=== PATIENT | male | born 1995 | race Caucasian/White ===

== ENCOUNTER 2018-12-05 13:48 | Emergency (ER) | payer OTHER ==
[2018-12-05] MEDS ORDERED: NS 500 ML IV ONE (14:05)
--- NOTE | 2018-12-05 14:14 | EDPHY ---
H & P Time Seen by Provider: 12/05/18 13:49 HPI/ROS: HPI Chest pain. 23-year-old male by private vehicle. This patient reports that since 12 noon today, 2 hr ago, he has had chest pain which she describes as left-sided, underneath his left pectoral area, described as sharp, described as intermittent in intensity, described as worse with exertion. He has never had this pain before. He denies any past medical history. He denies any IV drugs or street drugs. No history of methamphetamine or cocaine use. He does not smoke. He denies any recent viral illness. ROS: Constitutional: No fever, no chills. No weakness. Eyes: No discharge. No changes in vision. ENT: No sore throat. No nasal congestion or rhinorrhea. Respiratory: No cough. No shortness of breath. Cardiac: As above, no palpitations. Gastrointestinal: No abdominal pain, no vomiting, no diarrhea. Genitourinary: No hematuria. No dysuria or increased frequency with urination. Musculoskeletal: No back pain. No neck pain. No myalgias or arthralgias. Skin: No rashes. Neurological: No headache. No focal weakness or altered sensation. Past medical history: No significant past medical history. He takes no prescription medications. Social history: He is a [employer]. No alcohol. No tobacco. As above. Physical Exam: General Appearance: Alert, no distress, mildly anxious. This patient is responding to questions appropriately and in full sentences. This patient appears well-hydrated and well-nourished. Eyes: Pupils equal and round no pallor or injection. No lid edema, erythema or injection. Respiratory: There are no retractions, lungs are clear to auscultation with good air movement bilaterally. Cardiovascular: Regular rate and rhythm. No murmur appreciated. Gastrointestinal: Abdomen is soft and nontender, no masses, bowel sounds normal. No focal tenderness at McBurney's point. No Garcia sign. Neurological: Motor sensory function is grossly intact. Cranial nerves are normal. Gait is normal. Skin: Warm and dry, no rashes. Musculoskeletal: Neck is supple and nontender. Extremities are symmetrical. All joints range without pain or impingement. Psychiatric: No agitation. No depression. Database: EKG: EKG time is 2:33 p.m.; EKG shows a narrow complex normal sinus rhythm with a ventricular rate of 82. The IN, QRS, QT intervals are within normal limits. Early repolarization pattern noted. There are no ST-T wave changes indicative of ischemic or injury pattern. No evidence of right heart strain. Interpreted by me. Imaging: Chest x-ray AP portable; the cardiac mediastinal silhouette is unremarkable. No evidence of pneumothorax or infiltrate. No acute cardiopulmonary disease process. Interpreted by me. Procedures: Emergency department course: Triage vital signs reviewed and are unremarkable. At this time the patient does not having significant pain or discomfort. Patient placed on a assembly detailer. IV established. EKG obtained and reviewed by myself. Heart score is 0-1. 3:20 p.m., the patient was re-evaluated, resting comfortably at this time. Results of his diagnostic workup discussed with him. These results are reassuring. I discussed repeating a 3 hr troponin. He is in agreement. He states that he has some mild discomfort at this time. He will be given 800 mg of ibuprofen. 6:30 p.m., the patient was re-evaluated, resting comfortably at this time. His father is in the room with him. I discussed the results of his emergency department workup in 2nd troponin with him and his father. He is denying any pain at this time. No shortness of breath. He is requesting discharge with his father. I feel he is safe for discharge. Follow-up and return to emergency department precautions were reviewed thoroughly with both him and his father. All their questions were answered. The patient was discharged home in good condition with his father. Differential Diagnosis: The differential diagnosis on this patient includes but is not limited to musculoskeletal pain, esophageal spasm, pneumothorax. Aortic dissection, pericarditis, myocarditis, acute coronary syndrome, pulmonary embolism unlikely. This represents a partial list of diagnoses considered. These considerations are based on history, physical exam, past history, reassessment and diagnostic testing. Constitutional: Initial Vital Signs Temperature (C) 37.7 C 12/05/18 14:07 Heart Rate 88 12/05/18 14:07 Respiratory Rate 16 12/05/18 14:07 Blood Pressure 157/78 H 12/05/18 14:07 O2 Sat (%) 98 12/05/18 14:07 O2 Delivery Mode Room Air Allergies/Adverse Reactions: No Known Drug Allergies Allergy (Verified 12/05/18 15:37) Medical Decision Making - Data Points Laboratory Results: Laboratory Results 12/05/18 11:43 12/05/18 11:43 Medications Given: Discontinued Medications Sodium Chloride (Ns) 500 mls @ 1,000 mls/hr IV EDNOW ONE PRN Reason: Protocol Stop: 12/05/18 14:34 Last Admin: 12/05/18 15:07 Dose: 500 mls Ibuprofen (Motrin) 800 mg PO EDNOW ONE Stop: 12/05/18 15:22 Last Admin: 12/05/18 15:37 Dose: 800 mg Point of Care Test Results: Chemistry 12/05/18 12/05/18 17:53 14:44 POC Troponin I 0.00 ng/mL ng/mL 0.06 ng/mL ng/mL (0.00-0.08) (0.00-0.08) Departure - Departure Disposition: Home, Routine, Self-Care Clinical Impression: Chest pain Condition: Good Instructions: Chest Pain (ED) Additional Instructions: Read and follow provided instructions. Follow-up with your primary care physician in 1-2 days for re-evaluation. Ibuprofen dosin mg every 6 hours with meals for the next 3 days only. Take only as needed for pain. Return to the emergency department for return of chest pain/worsening chest pain , shortness of breath, cough, fever or other serious concerns. Referrals: Patient,NotPresent [Unknown] - As per Instructions Stand Alone Forms: Work Excuse
[2018-12-05 14:54] LABS: PLATELET COUNT 206 10^3/uL (150-400)
[2018-12-05] MEDS ORDERED: IBUPROFEN 800 MG TAB PO ONE (15:21)
[2018-12-05 18:48] VITALS: BP 122/77
--- NOTE | 2018-12-05 21:06 | CPEKG ---
Test Reason : OPEN Blood Pressure : / mmHG Vent. Rate : 082 BPM Atrial Rate : 085 BPM P-R Int : 157 ms QRS Dur : 095 ms QT Int : 357 ms P-R-T Axes : 065 055 060 degrees QTc Int : [address] elev, probable normal early repol pattern Confirmed by Maura Rojas ([id number]) on 12/05/2018 9:05:28 PM Referred By: Maura Rojas Confirmed By:Maura Rojas
== END 2018-12-05 18:48 | disposition home or self-care (01) ==
LOC: EDUNIT#
DX: R07.89 Other chest pain (principal)
CPT/HCPCS: 84484-ER